=== PATIENT | female | born 1940 | race Caucasian/White ===

== ENCOUNTER 2016-11-09 11:02 | Outpatient (CLI) | payer MEDICARE, OTHER | END 2016-11-09 11:03 | disposition home or self-care (01) | DX: G47.33 Obstructive sleep apnea (adult) (pediatric) (principal) | CPT/HCPCS: 99214; G0463 ==

== ENCOUNTER 2016-12-28 10:27 | Outpatient (CLI) | payer MEDICARE, OTHER | END 2016-12-28 10:28 | disposition home or self-care (01) | DX: I10 Essential (primary) hypertension (principal); E55.9 Vitamin D deficiency, unspecified; E78.5 Hyperlipidemia, unspecified ==

== ENCOUNTER 2018-01-17 10:50 | Outpatient (CLI) | payer MEDICARE, OTHER ==
[2018-01-17 17:33] LABS: BASOPHILS % (AUTO) 0.8 %; EOSINOPHILS # (AUTO) 0.1 10^3/uL (0.0-0.7); EOSINOPHILS % (AUTO) 2.6 %; HGB - HEMOGLOBIN 13.8 g/dL (12.0-16.0); LYMPHOCYTES # (AUTO) 1.3 10^3/uL (1.5-3.5); LYMPHOCYTES % (AUTO) 33.8 %; MEAN CORPUSCULAR HEMOGLOBIN 30.8 pg (27.0-31.0); MEAN CORPUSCULAR HGB CONC 32.8 g/dL (32.0-36.0); MEAN CORPUSCULAR VOLUME 93.9 fL (81.0-99.0); MEAN PLATELET VOLUME 7.9 fL (7.9-10.8); MONOCYTES # (AUTO) 0.4 10^3/uL (0.0-1.0); MONOCYTES % (AUTO) 9.9 %; NEUTROPHILS % (AUTO) 52.9 %; PLT - PLATELET COUNT 231 10^3/uL (130-450); RED BLOOD COUNT 4.49 10^6/uL (4.20-5.40); RED CELL DISTRIBUTION WIDTH 13.3 % (12.0-15.0); WHITE BLOOD COUNT 3.9 x10^3/uL (4.8-10.8)
[2018-01-17 17:52] LABS: HEMOGLOBIN A1C 0.51 g/dL; HEMOGLOBIN A1C % 5.3 % (4.6-6.2)
[2018-01-17 17:58] LABS: ALBUMIN 4.2 g/dL (3.2-5.5); ALBUMIN/GLOBULIN RATIO 1.4 (1.0-2.2); ALKALINE PHOSPHATASE 118 IU/L (42-121); ALT ALANINE AMINOTRANSFERASE 40 IU/L (10-60); AST ASPARTATE AMINOTRANSFERASE 27 IU/L (10-42); BILIRUBIN,TOTAL 0.7 mg/dL (0.2-1.0); BUN - BLOOD UREA NITROGEN 17 mg/dL (6-20); CALCIUM 9.1 mg/dL (8.5-10.3); CARBON DIOXIDE - CO2 27 mmol/L (21-32); CHLORIDE 105 mmol/L (101-111); CHOL/HDL RATIO 3.4 (<4.4); CHOLESTEROL 190 mg/dL; CREATININE 0.8 mg/dL (0.4-1.0); GFR - MDRD 70 (>89); GLUCOSE 91 mg/dL (70-100); HDL CHOLESTEROL 56 mg/dL; LDL CHOLESTEROL,CALCULATED 109 mg/dL; LDL/HDL RATIO 1.9 (<4.4); SODIUM 138 mmol/L (135-145); TOTAL PROTEIN 7.2 g/dL (6.7-8.2); VLDL CHOLESTEROL 25 mg/dL
== END 2018-01-17 10:51 | disposition home or self-care (01) ==
LOC: LAB.F 10:50
PROVIDERS: ATTEND Physician Assistant Medical
DX: Z51.81 Encounter for therapeutic drug level monitoring (principal); R73.01 Impaired fasting glucose; E78.5 Hyperlipidemia, unspecified; E55.9 Vitamin D deficiency, unspecified; E03.9 Hypothyroidism, unspecified; R06.09 Other forms of dyspnea
CPT/HCPCS: 36415; 80053; 80061; 82306; 83036; 83721; 84443; 85025; 85379

== ENCOUNTER 2018-01-18 11:29 | Outpatient (CLI) | payer MEDICARE, OTHER ==
--- NOTE | 2018-01-18 12:38 | XRAY Report ---
TWO VIEW CHEST: 01/18/2018 CLINICAL INDICATION: Dyspnea on exertion. COMPARISON: 06/09/2015. FINDINGS: Frontal and lateral views of the chest demonstrate a normal cardiac silhouette. The lungs are clear. No effusion or pneumothorax is present. IMPRESSION: NORMAL CHEST, UNCHANGED. TD: 01/18/2018 12:37
== END 2018-01-18 11:30 | disposition home or self-care (01) ==
LOC: DI.S 11:29
PROVIDERS: ATTEND Physician Assistant Medical
DX: R06.00 Dyspnea, unspecified (principal); Z77.22 Contact with and (suspected) exposure to environmental tobacco smoke (acute) (chronic)
CPT/HCPCS: 71046

== ENCOUNTER 2018-01-23 18:38 | Outpatient (CLI) | payer MEDICARE, OTHER ==
--- NOTE | 2018-01-24 09:08 | Ultrasound Report ---
EXAM: BILATERAL LOWER EXTREMITY VENOUS ULTRASOUND EXAM DATE: 01/23/2018 07:23 PM. CLINICAL HISTORY: D-DIMER ABOVE REFERENCE RANGE, EDEMA LEG, dyspnea. COMPARISON: None. TECHNIQUE: Real-time sonographic vascular imaging was performed by the locomotive driver through the lower extremities utilizing both color-flow and Doppler spectral analysis. Multiple textile designs sales representative static i mages were saved for review. FINDINGS: Right: Common Femoral Vein (CFV): Normal. CFV-GSV Junction: Normal. Profunda Femoral Vein (PFV): Normal. Femoral Vein (FV) Prox: Normal. Femoral Vein (FV) Mid: Normal. Femoral Vein (FV) Dist: Normal. Popliteal Vein: Normal. Posterior Tibial Veins: Normal. Peroneal Veins: Normal. Left: Common Femoral Vein (CFV): Normal. CFV-GSV Junction: Normal. Profunda Femoral Vein (PFV): Normal. Femoral Vein (FV) Prox: Normal. Femoral Vein (FV) Mid: Normal. Femoral Vein (FV) Dist: Normal. Popliteal Vein: Normal. Posterior Tibial Veins: Normal. Peroneal Veins: Normal. Other: None. IMPRESSION: No evidence for deep venous thrombosis bilaterally. [facility] Referring Provider Line: [phone] SITE ID: [id number]
== END 2018-01-23 18:39 | disposition home or self-care (01) ==
LOC: DI 18:38
PROVIDERS: ATTEND Physician Assistant Medical
DX: R60.0 Localized edema (principal); R79.1 Abnormal coagulation profile
CPT/HCPCS: 93970

== ENCOUNTER 2018-02-09 08:52 | Outpatient (CLI) | payer MEDICARE, OTHER ==
[2018-02-09] MEDS ORDERED: ALBUTEROL NEB 2.5 MG/3 ML INH ONE (09:00)
== END 2018-02-09 08:53 | disposition home or self-care (01) ==
LOC: RT 08:52
PROVIDERS: ATTEND Physician Assistant Medical
DX: R06.09 Other forms of dyspnea (principal); J30.2 Other seasonal allergic rhinitis
CPT/HCPCS: 94060; 94729

== ENCOUNTER 2018-02-22 12:57 | Outpatient (CLI) | payer MEDICARE, OTHER ==
--- NOTE | 2018-02-22 15:24 | CARDIAC PROCEDURE NOTE ---
DATE OF SERVICE: 02/22/2018 Physician: JUSTIN Reid PROCEDURE: Stress echocardiogram. PROCEDURE SYMPTOMS: Dyspnea on exertion. CARDIAC RISK FACTORS: Age, hypertension, hyperlipidemia. PREVIOUS CARDIAC PROCEDURES: None. CURRENT SYMPTOMATOLOGY: None. CLINICAL HISTORY: A 77-year-old female without known coronary artery disease. Atenolol held for 24 hours. INITIAL RESTING VITAL SIGNS: Blood pressure 126/74, heart rate 64, height 66 inches, weight 190 pounds, BMI 30.66. PROCEDURE AND FINDINGS: The patient's identity and date verified, consent signed. After resting echocardiogram images were obtained, the patient performed treadmill exercise using a Manjit protocol completing 5 minutes, 24 seconds and an estimated workload of 7.05 metabolic equivalents. Maximal blood pressure was 184/82 with a heart rate of 135 beats per minute or 94% of maximum predicted heart rate for age. The blood pressure response to exercise was within normal limits. The patient stopped because she was out of breath. The resting ECG demonstrated normal sinus rhythm with no abnormalities. There was less than 0.[address] segment depression and occasional PACs. Post-exercise images were immediately obtained on cessation of exercise. FINAL IMPRESSION: 1. Good quality test. 2. No ECG signs of ischemia, testing complete, awaiting echocardiographic report. 3. Negative stress test clinically for angina. 4. Premature atrial contractions ectopy. 5. Exceeded predicted exercise time of 5 minutes 10 seconds. TD: 02/22/2018 15:23
[2018-02-22 15:55] VITALS: BP 136/72
== END 2018-02-22 12:58 | disposition home or self-care (01) ==
LOC: DI 12:57
PROVIDERS: ATTEND Physician Assistant Medical
DX: R06.09 Other forms of dyspnea (principal)
CPT/HCPCS: 93351

== ENCOUNTER 2019-07-04 09:52 | Outpatient (CLI) | payer MEDICARE, OTHER ==
[2019-07-04 10:02] LABS: BASOPHILS % (AUTO) 0.7 %; EOSINOPHILS # (AUTO) 0.1 10^3/uL (0.0-0.7); EOSINOPHILS % (AUTO) 3.1 %; HGB - HEMOGLOBIN 13.3 g/dL (12.0-16.0); LYMPHOCYTES # (AUTO) 1.3 10^3/uL (1.5-3.5); MEAN CORPUSCULAR HEMOGLOBIN 31.7 pg (27.0-31.0); MEAN CORPUSCULAR HGB CONC 32.7 g/dL (32.0-36.0); MEAN CORPUSCULAR VOLUME 96.9 fL (81.0-99.0); MEAN PLATELET VOLUME 9.5 fL (7.9-10.8); MONOCYTES # (AUTO) 0.5 10^3/uL (0.0-1.0); MONOCYTES % (AUTO) 10.1 %; NEUTROPHILS # (AUTO) 2.6 10^3/uL (1.5-6.6); NEUTROPHILS % (AUTO) 56.9 %; PLT - PLATELET COUNT 210 10^3/uL (130-450); RED CELL DISTRIBUTION WIDTH 13.1 % (12.0-15.0); WHITE BLOOD COUNT 4.6 x10^3/uL (4.8-10.8)
[2019-07-04 10:22] LABS: ALBUMIN 3.9 g/dL (3.2-5.5); ALBUMIN/GLOBULIN RATIO 1.4 (1.0-2.2); ALKALINE PHOSPHATASE 113 IU/L (42-121); ALT ALANINE AMINOTRANSFERASE 35 IU/L (10-60); AST ASPARTATE AMINOTRANSFERASE 22 IU/L (10-42); BILIRUBIN,TOTAL 0.8 mg/dL (0.2-1.0); BUN - BLOOD UREA NITROGEN 14 mg/dL (6-20); CALCIUM 8.9 mg/dL (8.5-10.3); CARBON DIOXIDE - CO2 27 mmol/L (21-32); CHLORIDE 106 mmol/L (101-111); CHOL/HDL RATIO 2.9 (<4.4); CHOLESTEROL 178 mg/dL; CREATININE 0.9 mg/dL (0.4-1.0); GFR - MDRD 61 (>89); GLUCOSE 97 mg/dL (70-100); HDL CHOLESTEROL 61 mg/dL; LDL CHOLESTEROL,CALCULATED 92 mg/dL; LDL/HDL RATIO 1.5 (<4.4); SODIUM 142 mmol/L (135-145); TOTAL PROTEIN 6.7 g/dL (6.7-8.2); VLDL CHOLESTEROL 25 mg/dL
== END 2019-07-04 09:53 | disposition home or self-care (01) ==
LOC: LAB 09:52
PROVIDERS: ATTEND Physician Assistant Medical
DX: I10 Essential (primary) hypertension (principal); E78.5 Hyperlipidemia, unspecified; E03.9 Hypothyroidism, unspecified
CPT/HCPCS: 36415; 80053; 80061; 83721; 84443; 85025

== ENCOUNTER 2019-08-22 12:54 | Outpatient (CLI) | payer MEDICARE, OTHER ==
--- NOTE | 2019-08-22 13:41 | SLEEP CARE CONSULTATION ---
Information from patient questionnaire entered by Fern Canseco. I have reviewed and concur with the information entered by Fern Canseco. This document represents the service I personally performed and the decisions made by me, Kelly Parker, RN, MSN, SPECIAL SERVICES COORDINATOR. History of Present Illness Previous diagnosis: Severe, Obstructive Sleep Apnea-Hypopnea Syndrome AHI: 49 Reason for CPAP/BiPAP follow up: annual (last seen 11-09-1916 - did not get her annual letter. ) Equipment type: CPAP Equipment obtained from: Dr[employer] Mask style: Nasal (wisp) Mask brand: Respironics Backup mask available: Yes Last cushion change: 2 weeks ago CPAP Compliance Data - Data Reviewed with Patient Average duration of nightly device use: 7.75 Compliance rate %: 100 (180 days) Current pressure setting (cmH2O): 5-15 Humidity settin Average residual AHI: 1.5 (average pressure 6.3 & 90% pressure 8.0 cm) Subjective Patient concerns: reports: dry mouth, nose, throat. denies: aerophagia, mask discomfort, air blowing in eyes, mask leak noise, condensation in mask/hose, nasal congestion, epistaxis Observed to snore while using device: No Current pressure setting perceived as: too low (occasionally waking to snorting) On therapy, patient: reports: sleeping better (cannot sleep witout CPAP), awakening more refreshed, being more awake and alert during the day, more rested overall. denies: drowsiness while driving Initial [place] Sleepiness Scale score: 8 Current [place] Sleepiness Scale score: 2 Allergies and Home Medications Known drug allergies: No Home medication list reviewed: Yes Allergy and home medication list: Atenolol, Levothyroxine, hydrochlorothiazide, simvastatin, Aspirin, Fish oil, Centrum silver, B12, Vitamin D3, Claritin. Physical Exam Blood Pressure: 124/60 Cuff size: long Heart Rate: 50 O2 Saturation: 98 Height: 5 ft 6.5 in Weight: 186 lb 3.2 oz Body Mass Index: 29.6 BMI Classification: Overweight Impression and Plan 1. Obstructive Sleep Apnea-Hypopnea Syndrome, severe, with good treatment compliance and good apnea control. On CPAP therapy, the patient has better sleep quality and is more rested overall. For her air hunger, I will adjust her autoCPAP pressure higher to [id number] as her 90% average pressure is 8cmH20. She is advised to contact me if the pressure change uncomfortable or does not resolve air hunger. For her oral dryness, she is advised to increase her humidity to 3. The She has been trying to lose weight is is frustrated with lack of progress and did not want to know her weight. She was advised of general guidelines such as reduce portions and healthy content such as whole foods and to avoid refined foods. She was also advised to discuss a diet consult with PCP if unable to meet weight loss goals. In addition, she was advised to keep active as this will counter some of the risks of being over weight. If successful in losing weight, I discussed how significant weight loss will reduce her apnea and CPAP pressure requirements. Symptoms to report discussed for CPAP pressure adjustment. Since her CPAP is over 5 years old and of reasonable use, I will update her CPAP. She prefers the Respironics Dreamstation and compliance guidelines discussed. She will update after she returns from winter holiday. Patient's apnea severity and rationale for treatment to reduce apnea, improve sleep quality and reduce cardiovascular and cerebrovascular events was reviewed. I also reviewed the benefit of consistent device use of CPAP for hypertension . I also reviewed her sleep study and informed her that since her apnea is more severe supine, she is to avoid supine sleep if unable to use her CPAP. * Update CPAP * Change CPAP pressure to 8-12 cmH2O * Increase humidity. * Notify me if snoring with mask or feeling that the pressure is too much or too little * Attempt to lose weight * Consider diet consult * Return for follow up 6 weeks after new CPAP , or sooner if concerns arise I spent 100% of this 33 minute visit face to face with the patient with greater than 50% of this was spent time counseling the patient and coordination of care.
[2019-08-22 13:42] VITALS: BP 124/60
== END 2019-08-22 12:55 | disposition home or self-care (01) ==
LOC: SC 12:54
PROVIDERS: ATTEND Nurse Practitioner Family
DX: G47.33 Obstructive sleep apnea (adult) (pediatric) (principal)
CPT/HCPCS: 99212; 99214

== ENCOUNTER 2020-07-20 12:54 | Outpatient (CLI) | payer MEDICARE, OTHER ==
[2020-07-20 14:10] VITALS: BP 104/60
--- NOTE | 2020-07-20 14:10 | SLEEP CARE CONSULTATION ---
Information from patient questionnaire entered by Fern Canseco. I have reviewed and concur with the information entered by Fern Canseco. This document represents the service I personally performed and the decisions made by me, Kelly Parker, RN, MSN, DYER ASSISTANT. History of Present Illness Service Date and Time: 07/20/2020 1254 Previous diagnosis: Severe, Obstructive Sleep Apnea-Hypopnea Syndrome AHI: 49.1 (in 2006) Reason for follow up: annual (last seen 2018) Equipment type: CPAP Equipment obtained from: [employer] (getting as needed) Mask style: Nasal (wisp) Backup mask available: Yes (old mask ) Last cushion change: 2 weeks ago Prior sleep studies: Yes Year and Where: 2006- [facility] Type of Sleep Study: Polysomnography CPAP Compliance Data - Data Reviewed with Patient Average duration of nightly device use: 7.7 Compliance rate %: 100 (180 days) Current pressure setting (cmH2O): 8-12 Humidity settin Average residual AHI: 0.9 (90% pressure 9.2cmH20) Average large leak: 0 Subjective Patient concerns: reports: mask leak noise (rare leaks when sleeps on side ), dry mouth, nose, throat (dry mouth - rarely). denies: aerophagia, mask discomfort, air blowing in eyes, condensation in mask/hose, nasal congestion, epistaxis, other Observed to snore while using device: No Current pressure setting perceived as: comfortable On therapy, patient: reports: sleeping better (cant sleep with out.), awakening more refreshed, being more awake and alert during the day, more rested overall. denies: drowsiness while driving Initial [place] Sleepiness Scale score: 8 (in 2006) Current [place] Sleepiness Scale score: 3 Allergies and Home Medications Known drug allergies: No Home medication list reviewed: No (no changes ) Review of Systems Review of systems same as previous: Yes Physical Exam Blood Pressure: 104/60 Cuff size: long Heart Rate: 58 O2 Saturation: 97 Height: 5 ft 6.5 in Weight: 185 lb 9.6 oz Body Mass Index: 29.5 BMI Classification: Overweight Impression and Plan 1. Obstructive Sleep Apnea-Hypopnea Syndrome, severe, with good treatment compliance and good apnea control. On CPAP therapy, the patient has better sleep quality and is more rested overall. If oral dryness becomes more frequent - she is to increase the elevated humidity. The patients CPAP is over 5 years old and of reasonable use. She was going to update last year but travel plans interfered. Thus, the CPAP will be updated today. The new CPAPs also have a better humidity system which could assist control of patients dryness symptoms. A DWO prescription will be made. Compliance guidelines for new device and follow up discussed. Mask leaks predominately from when patient sleeps on their side can be reduced by using a CPAP pillow. A CPAP pillow sample was shown. This and other styles can be purchased online. Patients weight is stable but she is over weight. She was advised to lose some weight due to health risks associated with obesity. If significant weight loss, it can reduce apnea and CPAP pressure requirements. Patient informed of symptoms to report for further adjustment of CPAP pressure for weight loss. She does not want her pressure range adjusted at this time and it should accommodate some weight loss. Patient's apnea severity and rationale for treatment to reduce apnea, improve sleep quality and reduce c ardiovascular and cerebrovascular events was reviewed. I also reviewed the benefit of consistent device use of CPAP for hypertension. * Continue auto CPAP pressure at 8-12 cmH2O * Update CPAP * Notify me if snoring with mask or feeling that the pressure is too much or too little * Attempt to lose weight * Call this office if any problems using CPAP * Return for follow up in 1 month after new CPAP , or sooner if concerns arise Counseling Topics: Weight loss health impact Time Spent with Patient (minutes): 23
== END 2020-07-20 12:55 | disposition home or self-care (01) ==
LOC: SC 12:54
PROVIDERS: ATTEND Nurse Practitioner Family
DX: G47.33 Obstructive sleep apnea (adult) (pediatric) (principal); E66.3 Overweight; Z68.29 Body mass index [BMI] 29.0-29.9, adult
CPT/HCPCS: 99213; G0463; 99212

== ENCOUNTER 2020-09-19 11:15 | Emergency (ER) | payer MEDICARE, OTHER ==
[2020-09-19 11:25] VITALS: BP 137/101
[2020-09-19] MEDS ORDERED: TETANUS/DIPHTHERIA/PERTUSSIS 0.5 ML SYRINGE IM ONE (12:03)
--- NOTE | 2020-09-19 12:12 | ED Physician Documentation ---
PD HPI UPPER EXT INJURY - Stated complaint Stated Complaint: RT FINGER INJ - Chief complaint Chief Complaint: Laceration - History obtained from History obtained from: Patient - History of Present Illness Location: Right, Finger (index) Where injury occurred: Home Timing - onset: Yesterday Timing - duration: Days (1) Timing - details: Abrupt onset Pain level max: 3 Pain level now: 1 Improved by: Rest Worsened by: Moving, Palpating Contributing factors: No: Anticoagulated - Additonal information Additional information: 79-year-old female presents to the emergency department stating that she pinched the tip of her right index finger in between 2 large pieces of wood yesterday. States continued bleeding today. Unknown last tetanus. She is right-handed. Nothing makes it better or worse. 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: Tubal ligation, Hysterectomy HEENT: Cataracts - Present Medications Home Medications: Ambulatory Orders Medication Instructions Recorded Confirmed Aspirin [Aspir 81] 81 mg ORAL DAILY 04/15/14 01/07/15 Atenolol/Chlorthalidone 50 tab ORAL DAILY 04/15/14 01/07/15 [Atenolol-Chlorthal 50-25 Tb] Cholecalciferol (Vitamin D3) 1,000 units ORAL DAILY 04/15/14 01/07/15 [Vitamin D] Levothyroxine [Synthroid] 150 mcg ORAL DAILY 04/15/14 01/07/15 Loratadine/Pseudoephedrine 1 tab ORAL DAILY 04/15/14 01/07/15 [Claritin-D 12 Hour Tablet] Mercer-3 Fatty Acids [Fish Oil] 2 tab ORAL DAILY 04/15/14 01/07/15 Simvastatin 1 tab ORAL DAILY 04/15/14 01/07/15 hydroCHLOROthiazide 12.5 mg ORAL DAILY 04/15/14 01/07/15 [Hydrochlorothiazide] - Allergies Allergies/Adverse Reactions: Allergies Allergy/AdvReac Type Severity Reaction Status Date / Time No Known Drug Allergies Allergy Verified 09/19/20 11:32 - Social History Does the pt smoke?: No Smoking Status: Never smoker Does the pt have substance abuse?: No - Immunizations Immunizations are current?: No Immunizations: TDAP >10years/unknown - POLST Patient has POLST: Yes PD ED PE NORMAL - Vitals Vital signs reviewed: Yes - General General: Alert and oriented X 3, No acute distress - HEENT HEENT: Moist mucous membranes - Neck Neck: Supple, no meningeal sign - Derm Derm: Warm and dry - Neuro Neuro: Alert and oriented X 3 - Psych Psych: Normal mood, Normal affect PD ED PE EXPANDED - Extremities KIKO UE/Hands Visual: 1 - laceration Results - Vitals Vitals: Vital Signs - 24 hr 09/19/20 11:21 Temperature 36.5 C Heart Rate 66 Respiratory 15 Rate Blood Pressure 137/101 H O2 Saturation 99 Oxygen O2 Source Room air Procedures - Laceration (location) Right middle finger Length in cm: 1.5 Wound type: Curved, Superficial, Clean Neurovascular status: Sensory intact, Motor intact, Vascular intact Tendon involvement: Tendon intact Wound Preparation: Irrigated copiously NS Skin layer closure: Dermabond Other: Patient tolerated well, No complications, Neurovascular intact, Dressing applied, Tetanus booster given Complexity: Simple PD MEDICAL DECISION MAKING - ED course Complexity details: considered differential, d/w patient ED course: Patient with a right middle finger laceration yesterday. Continued bleeding today. Tdap given. No bleeding in the emergency department. The wound was cleansed. Dermabond was applied to the wound. Tolerated well. Bandage applied and placed in a finger cage. We will have her follow-up with her doctor as needed for further care. Warnings of infection and instructions on wound care given at bedside. Also counseled on how to minimize scarring. Patient counseled regarding signs and symptoms for which I believe and urgent re-evaluation would be necessary. Patient with good understanding of and agreement to plan and is comfortable going home at this time This document was made in part using voice recognition software. While efforts are made to proofread this document, sound alike and grammatical errors may occur. Departure - Departure Disposition: 01 Home, Self Care Clinical Impression: Finger laceration Qualifiers: Encounter type: initial encounter Finger: middle finger Damage to nail status: without damage Foreign body presence: without foreign body Laterality: right Qualified Code(s): S61.212A - Laceration without foreign body of right middle finger without damage to nail, initial encounter Condition: Good Instructions: ED Laceration Hand Follow-Up: Chastity Pearl PA-C [Primary Care Provider] - As Needed Comments: Return if you worsen. The glue will fall off on its own. Return for redness, swelling or drainage from the wound Discharge Date/Time: 09/19/20 12:25
== END 2020-09-19 12:25 | disposition home or self-care (01) ==
LOC: ED 11:15
DX: S61.212A Laceration without foreign body of right middle finger without damage to nail, initial encounter (principal); W23.1XXA Caught, crushed, jammed, or pinched between stationary objects, initial encounter; Y92.009 Unspecified place in unspecified non-institutional (private) residence as the place of occurrence of the external cause; Z23 Encounter for immunization; I10 Essential (primary) hypertension; Z79.82 Long term (current) use of aspirin
CPT/HCPCS: 12001; 90471; 99282

== ENCOUNTER 2021-05-31 16:21 | Outpatient (CLI) | payer MEDICARE, OTHER | END 2021-05-31 16:22 | disposition home or self-care (01) | LOC: COV 16:21 | PROVIDERS: ATTEND Family Medicine | DX: R07.0 Pain in throat (principal); R09.81 Nasal congestion; J34.89 Other specified disorders of nose and nasal sinuses; Z20.822 Contact with and (suspected) exposure to COVID-19 ==

== ENCOUNTER 2021-07-05 07:58 | Outpatient (CLI) | payer MEDICARE, OTHER ==
[2021-07-05 08:15] LABS: EOSINOPHILS # (AUTO) 0.1 10^3/uL (0.0-0.7); EOSINOPHILS % (AUTO) 3.7 %; HCT - HEMATOCRIT 40.8 % (37.0-47.0); HGB - HEMOGLOBIN 13.5 g/dL (12.0-16.0); LYMPHOCYTES # (AUTO) 1.3 10^3/uL (1.5-3.5); MEAN CORPUSCULAR HEMOGLOBIN 32.1 pg (27.0-31.0); MEAN CORPUSCULAR HGB CONC 33.1 g/dL (32.0-36.0); MEAN CORPUSCULAR VOLUME 96.9 fL (81.0-99.0); MEAN PLATELET VOLUME 9.1 fL (7.9-10.8); MONOCYTES # (AUTO) 0.5 10^3/uL (0.0-1.0); NEUTROPHILS # (AUTO) 1.9 10^3/uL (1.5-6.6); PLT - PLATELET COUNT 188 10^3/uL (130-450); RED BLOOD COUNT 4.21 10^6/uL (4.20-5.40); RED CELL DISTRIBUTION WIDTH 12.8 % (12.0-15.0); WHITE BLOOD COUNT 3.8 x10^3/uL (4.8-10.8)
[2021-07-05 08:28] LABS: ALBUMIN/GLOBULIN RATIO 1.5 (1.0-2.2); BILIRUBIN,TOTAL 0.8 mg/dL (0.2-1.0); CALCIUM 9.2 mg/dL (8.5-10.3); CREATININE 0.8 mg/dL (0.4-1.0); POTASSIUM 3.9 mmol/L (3.5-5.0); TOTAL PROTEIN 6.6 g/dL (6.7-8.2)
[2021-07-05 08:45] LABS: THYROID STIMULATING HORMONE 0.09 uIU/mL (0.34-5.60)
[2021-07-05 09:24] LABS: FREE T4 (FREE THYROXINE) 0.99 ng/dL (0.58-1.64)
== END 2021-07-05 07:59 | disposition home or self-care (01) ==
LOC: LAB 07:58
PROVIDERS: ATTEND Registered Nurse
DX: D72.819 Decreased white blood cell count, unspecified (principal); E78.5 Hyperlipidemia, unspecified; I10 Essential (primary) hypertension
CPT/HCPCS: 36415; 80053; 84439; 84443; 85025

== ENCOUNTER 2021-12-02 10:01 | Outpatient (CLI) | payer MEDICARE, OTHER ==
[2021-12-02 10:46] LABS: CHOL/HDL RATIO 4.4 (<4.4); CHOLESTEROL 253 mg/dL; HDL CHOLESTEROL 58 mg/dL; LDL CHOLESTEROL,CALCULATED 170 mg/dL; LDL/HDL RATIO 2.9 (<4.4); TRIGLYCERIDES 127 mg/dL; VLDL CHOLESTEROL 25 mg/dL
[2021-12-02 10:55] LABS: THYROID STIMULATING HORMONE 1.85 uIU/mL (0.34-5.60)
[2021-12-06 16:17] LABS: THYROID PEROXIDASE ANTIBODIES 165 IU/mL (<9)
== END 2021-12-02 10:02 | disposition home or self-care (01) ==
LOC: LAB 10:01
PROVIDERS: ATTEND Registered Nurse
DX: E78.5 Hyperlipidemia, unspecified (principal); E03.9 Hypothyroidism, unspecified
CPT/HCPCS: 36415; 80061; 83721; 84443; 86376; 86800

== ENCOUNTER 2022-06-23 08:00 | Outpatient (CLI) | payer MEDICARE, OTHER ==
--- NOTE | 2022-06-23 10:26 | XRAY Report ---
PROCEDURE: Foot 3 View LT INDICATIONS: LEFT FOOT PAIN TECHNIQUE: 3 views of the foot were acquired. COMPARISON: None FINDINGS: Bones: No fractures or dislocations. Degenerative changes of the interphalangeal joints and first t arsometatarsal joint. No erosions or proliferative changes. No suspicious bony lesions. Soft tissues: No tibiotalar joint effusion. Achilles tendon appears normal. IMPRESSION: 1. No acute abnormality. 2. Mild degenerative changes. Reviewed by: Brandon Aguirre on 06/23/2022 10:25 AM PDT Approved by: Brandon Aguirre on 06/23/2022 10:25 AM PDT Station ID: [id number]
== END 2022-06-23 23:59 | disposition home or self-care (01) ==
LOC: DI.S 08:00
PROVIDERS: ATTEND Physician Assistant
DX: M19.072 Primary osteoarthritis, left ankle and foot (principal)

== ENCOUNTER 2022-07-21 08:00 | Outpatient (CLI) | payer MEDICARE, OTHER ==
--- NOTE | 2022-07-21 16:19 | XRAY Report ---
PROCEDURE: Foot 3 View LT INDICATIONS: LEFT FOOT PAIN TECHNIQUE: 3 views of the foot were acquired. COMPARISON: X-ray foot 06/23/2022 FINDINGS: Bones: No fractures or dislocations. There is an appearance of decreased density within the distal f ifth metatarsal head as well as base of the proximal phalanx. This is unchanged compared to prior exa m. There appears to be mild adjacent soft tissue edema. Scattered areas of IP degenerative narrowing are present. Soft tissues: No tibiotalar joint effusion. Achilles tendon appears normal. IMPRESSION: Appearance of decreased ossification of the fifth metatarsal and proximal fifth phalanx as above. Carson l this could be artifactual as it is not well seen on all views, the presence of what appears to be a djacent soft tissue edema raises concern for potential erosion which could be secondary to infection or inflammation such as gout. If this area is of concern, MRI foot is recommended for further evaluat ion. Reviewed by: Sierra Mendez MD on 07/21/2022 4:18 PM PDT Approved by: Sierra Mendez MD on 07/21/2022 4:18 PM PDT Station ID: [id number]
== END 2022-07-21 23:59 | disposition home or self-care (01) ==
LOC: DI.WOS 08:00
PROVIDERS: ATTEND Physician Assistant
DX: M79.672 Pain in left foot (principal)

== ENCOUNTER 2022-12-22 10:45 | Outpatient (CLI) | payer MEDICARE, OTHER | END 2022-12-22 10:46 | disposition home or self-care (01) | LOC: RT 10:45 | PROVIDERS: ATTEND Registered Nurse | DX: R06.09 Other forms of dyspnea (principal) | CPT/HCPCS: 94010; 94729 ==

== ENCOUNTER 2022-12-22 11:41 | Outpatient (CLI) | payer MEDICARE, OTHER ==
[2022-12-22 12:06] LABS: BASOPHILS % (AUTO) 0.8 %; EOSINOPHILS # (AUTO) 0.1 10^3/uL (0.0-0.7); EOSINOPHILS % (AUTO) 2.1 %; HCT - HEMATOCRIT 41.4 % (37.0-47.0); HGB - HEMOGLOBIN 13.6 g/dL (12.0-16.0); LYMPHOCYTES # (AUTO) 1.5 10^3/uL (1.5-3.5); LYMPHOCYTES % (AUTO) 29.2 %; MEAN CORPUSCULAR HEMOGLOBIN 31.4 pg (27.0-31.0); MEAN CORPUSCULAR HGB CONC 32.9 g/dL (32.0-36.0); MEAN CORPUSCULAR VOLUME 95.6 fL (81.0-99.0); MEAN PLATELET VOLUME 9.3 fL (7.9-10.8); MONOCYTES # (AUTO) 0.5 10^3/uL (0.0-1.0); MONOCYTES % (AUTO) 9.8 %; NEUTROPHILS % (AUTO) 57.9 %; PLT - PLATELET COUNT 230 10^3/uL (130-450); RED BLOOD COUNT 4.33 10^6/uL (4.20-5.40); RED CELL DISTRIBUTION WIDTH 12.7 % (12.0-15.0); WHITE BLOOD COUNT 5.2 x10^3/uL (4.8-10.8)
[2022-12-22 12:21] LABS: ALBUMIN/GLOBULIN RATIO 1.3 (1.0-2.2); ALKALINE PHOSPHATASE 108 IU/L (42-121); ALT ALANINE AMINOTRANSFERASE 33 IU/L (10-60); AST ASPARTATE AMINOTRANSFERASE 28 IU/L (10-42); BILIRUBIN,TOTAL 0.7 mg/dL (0.2-1.0); BUN - BLOOD UREA NITROGEN 17 mg/dL (6-20); CALCIUM 9.5 mg/dL (8.5-10.3); CARBON DIOXIDE - CO2 30 mmol/L (21-32); CHLORIDE 104 mmol/L (101-111); CHOL/HDL RATIO 3.1 (<4.4); CHOLESTEROL 180 mg/dL; CREATININE 0.9 mg/dL (0.4-1.0); GFR - MDRD 60 (>89); GLUCOSE 94 mg/dL (70-100); HDL CHOLESTEROL 58 mg/dL; LDL CHOLESTEROL,CALCULATED 100 mg/dL; LDL/HDL RATIO 1.7 (<4.4); POTASSIUM 3.9 mmol/L (3.5-5.0); SODIUM 141 mmol/L (135-145); TRIGLYCERIDES 108 mg/dL; VLDL CHOLESTEROL 22 mg/dL
[2022-12-22 12:30] LABS: THYROID STIMULATING HORMONE 1.19 uIU/mL (0.34-5.60)
== END 2022-12-22 11:42 | disposition home or self-care (01) ==
LOC: LAB 11:41
PROVIDERS: ATTEND Registered Nurse
DX: E78.5 Hyperlipidemia, unspecified (principal); Z79.899 Other long term (current) drug therapy
CPT/HCPCS: 36415; 80053; 80061; 83721; 84443; 85025

== ENCOUNTER 2023-01-05 11:32 | Outpatient (CLI) | payer MEDICARE, OTHER ==
[2023-01-05 12:07] VITALS: BP 112/64
--- NOTE | 2023-01-05 12:07 | SLEEP CARE CONSULTATION ---
Information from patient questionnaire entered by Vasquez Delgado. I have reviewed and concur with the information entered by Vasquez Delgado. This document represents the service I personally performed and the decisions made by me, Mariela Amezquita ARNP. History of Present Illness Service Date and Time: 01/05/2023 1132 Previous diagnosis: Severe, Obstructive Sleep Apnea-Hypopnea Syndrome AHI: 49.1 (in 2006) Reason for follow up: annual (LAST SEEN 06/2020) Equipment type: CPAP ( Dreamstation recertified) Equipment obtained from: [employer] (getting as needed) Mask style: Nasal (wisp) Mask brand: Respironics (Wisp) Backup mask available: Yes (old mask) Last cushion change: 1 time a week Prior sleep studies: Yes Year and Where: 2006- [facility] Type of Sleep Study: Polysomnography HPI additional information: SYMONE OCASIO was diagnosed to have severe, AHI 49.1, obstructive sleep apnea- hypopnea syndrome and returned today for CPAP therapy annual follow-up. Sleep Study - Results Type of Sleep Study: Polysomnography Prior sleep studies: Yes Year and Where: 2006- [facility] CPAP Compliance Data - Data Reviewed with Patient Average duration of nightly device use: 8 HRS 9 MIN 16SEC Compliance rate %: 98.9 (07/08/23-01/03/23; 178/180 days used) Current pressure setting (cmH2O): 8-12 Average residual AHI: 1.8 Central apnea: 0.3 Obstructive apnea: 0.4 Hypopnea: 1.1 Average large leak: 0 Compliance data discussion: Patient states she has "hypnagogic hallucinations" after she has been asleep for 2 hours in her past. She does not have them often but come more often when she is stressed. Subjective Missed days of use due to: reports: travel Patient concerns: reports: other (occasional nightmares). denies: aerophagia, mask discomfort, air blowing in eyes, mask leak noise, condensation in mask/hose, nasal congestion, dry mouth, nose, throat, epistaxis Observed to snore while using device: No Current pressure setting perceived as: comfortable On therapy, patient: reports: sleeping better, awakening more refreshed, being more awake and alert during the day, more rested overall. denies: drowsiness while driving Initial [place] Sleepiness Scale score: 8 (in 2006) Current [place] Sleepiness Scale score: 3 (01/05/23) Allergies and Home Medications Known drug allergies: No Drug allergies reviewed: Yes Home medication list reviewed: Yes (no changes) Allergy and home medication list: Allergies No Known Drug Allergies Allergy (Verified 01/04/23 14:15) Review of Systems Review of systems same as previous: Yes (no changes) Physical Exam Vital signs obtained and entered by: VASQUEZ Amador MA Blood Pressure: 112/64 (LEFT ARM) Cuff size: regular Heart Rate: 57 O2 Saturation: 97 Height: 5 ft 6 in Weight: 189 lb 9.6 oz Body Mass Index: 30.6 BMI Classification: Obese Impression and Plan 1. Obstructive Sleep Apnea-Hypopnea Syndrome, severe, with good treatment compliance and good apnea control. On CPAP therapy, the patient has better sleep quality and is more rested overall. Patient states she tried to order some supplies and found she needed to come in for an appointment to get a supply prescription update. An updated prescription will be sent to her DME later today. Patient has significant improvement of their sleep apnea and is satisfied with current CPAP therapy. Patient denies problems with oral dryness, nasal congestion, epistaxis, skin irritation or aerophagia. Patient's apnea severity and rationale for treatment to reduce apnea, improve sleep quality and reduce cardiovascular and cerebrovascular events was reviewed. I also reviewed the benefit of consistent device use of CPAP for hypertension. 2. Obesity, unspecified. Currently patients BMI is 30.6. Obesity increases the risk of apnea, CPAP pressure requirements and overall health risks especially cardiovascular and diabetes. Thus patient is advised to lose weight. The patient's CPAP pressure range should accommodate some weight loss. Symptoms to report for additional pressure adjustment discussed. * Continue auto CPAP pressure at 8-12 cmH2O * Update supplies * Notify me if snoring with mask or feeling that the pressure is too much or too little * Attempt to lose weight * Call this office if any problems using CPAP * Return for follow up in 1 year, or sooner if concerns arise Counseling Topics: Spare mask, Weight loss health impact Visit Type: In Office Time Spent with Patient (minutes): 23 Provider Statement: I spent 100% of the Face to Face Visit with the patient with greater than 50% spent counseling the patient and coordination of care.
== END 2023-01-05 11:33 | disposition home or self-care (01) ==
LOC: SC 11:32
PROVIDERS: ATTEND Nurse Practitioner Family
DX: G47.33 Obstructive sleep apnea (adult) (pediatric) (principal); E66.9 Obesity, unspecified; Z68.30 Body mass index [BMI] 30.0-30.9, adult
CPT/HCPCS: 99213; G0463; 99212

== ENCOUNTER 2024-01-04 13:15 | Outpatient (CLI) | payer MEDICARE, OTHER ==
--- NOTE | 2024-01-04 18:17 | XRAY Report ---
PROCEDURE: Knee 1 View BILAT INDICATIONS: BILAT KNEE PAIN, PA TUNNEL VIEW ONLY TECHNIQUE: 1 views of the knee(s) were acquired. COMPARISON: 12/26/2023 FINDINGS: Bones: Moderately severe left medial compartment joint space loss and moderate lateral compartment j oint space loss. Moderate marginal spurs present. Moderate medial and lateral right joint space loss with mild spur formation. Soft tissues: No suspicious soft tissue calcifications or masses. IMPRESSION: Bilateral osteoarthritis, most severe in the left medial compartment. Reviewed by: Katrin Peña MD on 01/04/2024 6:16 PM PDT Approved by: Katrin Peña MD on 01/04/2024 6:16 PM PDT Station ID: [id number]
== END 2024-01-04 23:59 | disposition home or self-care (01) ==
LOC: DI.WOS 13:15
PROVIDERS: ATTEND Physician Assistant Surgical
DX: M17.0 Bilateral primary osteoarthritis of knee (principal)

== ENCOUNTER 2024-01-09 11:17 | Outpatient (CLI) | payer MEDICARE, OTHER ==
--- NOTE | 2024-01-09 11:54 | Sleep Patient Instructions ---
Sleep Center Visit Summary - Patient Visit Information Reason for Visit: Annual follow-up - Patient Instructions Additional Instructions: You will continue with CPAP therapy with pressure set at 8-12 cmH2O. A supply prescription will be updated with your DME. We encourage you to continue to try to lose weight. Please follow up with the sleep care office in 1 year. - Clinic Information Contact: [facility] [address] [place] [address] [email or web address] T: [phone]
--- NOTE | 2024-01-09 11:58 | SLEEP CARE CONSULTATION ---
Information from patient questionnaire entered by Anu Delgado. I have reviewed and concur with the information entered by Anu Delgado. This document represents the service I personally performed and the decisions made by me, Mariela Amezquita ARNP. History of Present Illness Service Date and Time: 01/09/2024 1117 Previous diagnosis: Severe, Obstructive Sleep Apnea-Hypopnea Syndrome AHI: 49.1 (in 2006) Reason for follow up: annual (LAST SEEN 12/2022) Equipment type: CPAP ( Dreamstation recertified) Equipment obtained from: [employer] (getting as needed) Mask style: Nasal (Wisp) Mask brand: Respironics Backup mask available: Yes Last cushion change: few days ago Prior sleep studies: Yes Year and Where: 2006- [facility] Type of Sleep Study: Polysomnography HPI additional information: SYMONE OCASIO was diagnosed to have severe, AHI 49.1, obstructive sleep apnea- hypopnea syndrome and returned today for CPAP therapy annual follow-up. Sleep Study - Results Type of Sleep Study: Polysomnography Prior sleep studies: Yes Year and Where: 2006- [facility] CPAP Compliance Data - Data Reviewed with Patient Average duration of nightly device use: 8 HRS 8 MINS 52 SECS Compliance rate %: 99.5 (01/04/23-01/03/24; 363/365 days used) Current pressure setting (cmH2O): 8-12 Average residual AHI: 2.0 Central apnea: 0.3 Obstructive apnea: 0.4 Hypopnea: 1.3 Average large leak: 0 secs Subjective Missed days of use due to: reports: other (unknown) Patient concerns: reports: dry mouth, nose, throat (dry mouth, occasionally when on her back). denies: aerophagia, mask discomfort, air blowing in eyes, mask leak noise, condensation in mask/hose, nasal congestion, epistaxis Observed to snore while using device: No Current pressure setting perceived as: comfortable On therapy, patient: reports: sleeping better, awakening more refreshed, being more awake and alert during the day, more rested overall. denies: drowsiness while driving Initial [place] Sleepiness Scale score: 8 (in 2006) Current [place] Sleepiness Scale score: 2 Allergies and Home Medications Known drug allergies: No Drug allergies reviewed: Yes Home medication list reviewed: Yes (no changes) Allergy and home medication list: Allergies No Known Drug Allergies Allergy (Verified 01/05/24 12:26) Review of Systems Review of systems same as previous: Yes (no changes) Physical Exam Vital signs obtained and entered by: MARIELA NORIEGA Blood Pressure: 135/76 Cuff size: regular (left arm) Heart Rate: 52 O2 Saturation: 96 Height: 5 ft 6 in Weight: 184 lb 8 oz Weight change since last visit: 5 lbs less Body Mass Index: 29.7 BMI Classification: Overweight Impression and Plan 1. Obstructive Sleep Apnea-Hypopnea Syndrome, severe, with good treatment compliance and good apnea control. On CPAP therapy, the patient has better sleep quality and is more rested overall. Patient says her DME keep sending her disposable filters that do not fit in her machine. She has a DreamStation that has been recertified I was able to find an example of the disposable filter that she should be getting and I showed her how it goes on her nondisposable filter. I gave her 1 with the order number so that she can reach out to her DME to get the right disposable filters. Patient has significant improvement of their sleep apnea and is satisfied with current CPAP therapy. Patient denies problems with oral dryness, nasal congestion, epistaxis, skin irritation or aerophagia. Patient's apnea severity and rationale for treatment to reduce apnea, improve sleep quality and reduce cardiovascular and cerebrovascular events was reviewed. I also reviewed the benefit of consistent device use of CPAP for hypertension. 2. Overweight, unspecified. Currently patients BMI is 29.7. She has lost weight. Obesity increases the risk of apnea, CPAP pressure requirements and overall health risks especially cardiovascular and diabetes. Thus patient is advised to continue to try to lose weight. * Continue auto CPAP pressure at 8-12 cmH2O * Update supply prescription * Notify me if snoring with mask or feeling that the pressure is too much or too little * Attempt to lose weight * Call this office if any problems using CPAP * Return for follow up in 12 months, or sooner if concerns arise Counseling Topics: Spare mask, Weight loss health impact Prescriptions: Device supplies Follow up with Sleep Care in: 1 year Visit Type: In Office Time Spent with Patient (minutes): 22 Provider Statement: I spent 100% of the Face to Face Visit with the patient with greater than 50% spent counseling the patient and coordination of care.
[2024-01-09 12:08] VITALS: BP 135/76; O2SAT 96
== END 2024-01-09 11:18 | disposition home or self-care (01) ==
LOC: SC 11:17
PROVIDERS: ATTEND Nurse Practitioner Family
DX: G47.33 Obstructive sleep apnea (adult) (pediatric) (principal); E66.3 Overweight; Z68.29 Body mass index [BMI] 29.0-29.9, adult
CPT/HCPCS: 99213; G0463; 99212

== ENCOUNTER 2024-03-25 14:10 | Outpatient (CLI) | payer MEDICARE, OTHER ==
--- NOTE | 2024-03-26 14:31 | XRAY Report ---
PROCEDURE: Hip w/Pelvis 2-3V LT INDICATIONS: LEFT HIP PAIN TECHNIQUE: 2 views of the hip were acquired. COMPARISON: None. FINDINGS: Bones: No fractures or dislocations. No suspicious bony lesions. Moderate degeneration of the hip a nd sacroiliac joints laterally. Moderate degenerative disc disease in the lower lumbar spine. Soft tissues: No suspicious soft tissue calcifications or masses. IMPRESSION: 1. No acute bony abnormality. 2. Moderate degenerative joint disease. Reviewed by: Cory Guzman MD on 03/26/2024 2:30 PM PDT Approved by: Cory Guzman MD on 03/26/2024 2:30 PM PDT Station ID: [id number]
== END 2024-03-25 14:11 | disposition home or self-care (01) ==
LOC: DI 14:10
PROVIDERS: ATTEND Physician Assistant Surgical
DX: M16.12 Unilateral primary osteoarthritis, left hip (principal)

== ENCOUNTER 2024-05-14 10:26 | Outpatient (CLI) | payer MEDICARE, OTHER ==
--- NOTE | 2024-05-15 01:10 | XRAY Report ---
PROCEDURE: Lumbar Spine 2-3V INDICATIONS: LOW BACK PAIN TECHNIQUE: 2 view(s) of the lumbar spine were acquired. COMPARISON: None. FINDINGS: Bones: Vertebral body height and alignment is maintained. No suspicious bony lesions. Convex right t horacolumbar scoliosis present. Generalized decreased osseous mineralization present. Diffuse disc sp yazmin narrowing and hypertrophic facet joints at. Atherosclerotic calcification of the abdominal aorta without evidence of aneurysm. Surgical clips present in the right upper quadrant Soft tissues: Overlying bowel gas pattern is normal. No suspicious soft tissue calcifications. IMPRESSION: Degenerative disc disease and arthropathy particularly lower lumbar spine. Aortic athero sclerosis Reviewed by: Pacheco Jackson MD on 05/15/2024 12:09 AM CHRISTIAN Approved by: Pacheco Jackson MD on 05/15/2024 12:09 AM CHRISTIAN Station ID: [id number]
== END 2024-05-14 10:27 | disposition home or self-care (01) ==
LOC: DI 10:26
PROVIDERS: ATTEND Registered Nurse
DX: M47.816 Spondylosis without myelopathy or radiculopathy, lumbar region (principal); M51.36 Other intervertebral disc degeneration, lumbar region; I70.0 Atherosclerosis of aorta

== ENCOUNTER 2024-05-22 11:00 | Outpatient (CLI) | payer MEDICARE, OTHER ==
--- NOTE | 2024-05-22 16:23 | XRAY Report ---
PROCEDURE: Hip w/Pelvis 2-3V RT INDICATIONS: RIGHT HIP PAIN TECHNIQUE: 2 views of the hip were acquired. COMPARISON: X-ray hip 03/25/2024 FINDINGS: Bones: No fractures or dislocations. No suspicious bony lesions. Arthritic changes within the hip s bilaterally as well as lower lumbar spine. Soft tissues: No suspicious soft tissue calcifications or masses. 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 Reviewed by: Sierra Mendez MD on 05/22/2024 4:22 PM PDT Approved by: Sierra Mendez MD on 05/22/2024 4:22 PM PDT Station ID: [id number]
== END 2024-05-22 11:01 | disposition home or self-care (01) ==
LOC: DI 11:00
PROVIDERS: ATTEND Registered Nurse
DX: M16.0 Bilateral primary osteoarthritis of hip (principal); M47.816 Spondylosis without myelopathy or radiculopathy, lumbar region